=== PATIENT | female | born 1995 | race Two or more races ===

== ENCOUNTER 2023-11-03 22:08 | Emergency (ER) | payer OTHER ==
[2023-11-03 22:30] VITALS: BP 107/71; PULSE 74; RESP 18; TEMP 97.3; BMI 25.2
[2023-11-04 00:44] LABS: BASO % 0.7 % (0-2.0); HEMATOCRIT 34.7 % (32.4-45.2); HEMOGLOBIN 11.9 GM/dL (10.7-15.3); LYMPH % 29.4 % (8-40); MCH 29.2 pg (25.7-33.7); MCHC 34.3 g/dl (32.0-36.0); MEAN CELL VOLUME 84.9 fl (80-96); MEAN PLT VOLUME 7.6 fl (7.5-11.1); NEUT % 61.9 % (42.8-82.8); PLATELET COUNT 244 10^3/uL (134-434); RBC 4.09 M/mm3 (3.60-5.2); RDW 13.3 % (11.6-15.6); WHITE BLOOD COUNT 7.9 K/mm3 (4.0-10.0)
[2023-11-04 00:57] LABS: CHLORIDE 105 mmol/L (98-107); POTASSIUM 3.6 mmol/L (3.5-5.1); SODIUM 141 mmol/L (136-145)
[2023-11-04 00:59] LABS: CALCIUM 8.9 mg/dL (8.5-10.1)
[2023-11-04 01:01] LABS: ALBUMIN 3.9 g/dl (3.4-5.0); ANION GAP 10 mmol/L (4-13); BLOOD UREA NITROGEN 4.9 mg/dL (7-18); CO2 25 mmol/L (21-32); GLUCOSE,RANDOM 108 mg/dL (74-106)
[2023-11-04 01:03] LABS: CREATININE 0.7 mg/dL (0.55-1.3); SGOT/AST 16 U/L (15-37); SGPT/ALT 17 U/L (13-61)
[2023-11-04 01:06] LABS: BILIRUBIN,TOTAL 0.6 mg/dL (0.2-1); TOT PROT 7.5 g/dl (6.4-8.2)
[2023-11-04 01:07] LABS: ALK PHOS 49 U/L (45-117)
[2023-11-04 01:57] LABS: HIV INTERPRETATION NEGATIVE (NEGATIVE)
== END 2023-11-04 01:26 | disposition home or self-care (01) ==
LOC: JER 22:08
DX: N63.21 Unspecified lump in the left breast, upper outer quadrant (principal)
CPT/HCPCS: 36415; 80053; 82378; 84702; 85025; 86300; 86304; 86803; 86850; 86900; 86901; 87389; 99283-25